=== PATIENT | female | born 1995 | race African-American/Black ===

== ENCOUNTER 2019-06-04 11:01 | Emergency (ER) | payer MEDICAID ==
[~2019-06-04] VITALS: Ht 162.6 cm; Wt 42.5 kg
[2019-06-04] MEDS ORDERED: SODIUM CHLORIDE 0.9% 1,000 ML IV ONE (13:15)
[2019-06-04 13:21] LABS: BASOPHILS % 0.7 % (0.0-2.0); EOSINOPHILS % 1.9 % (0.0-5.0); HEMATOCRIT. 36.5 % (36.0-48.0); HEMOGLOBIN. 11.7 g/dL (12.0-16.0); LYMPHOCYTES % 22.6 % (20.0-50.0); MEAN CORPUSCULAR HEMOGLOBIN 23.8 pg (28.0-32.0); MEAN CORPUSCULAR VOLUME 74.5 fL (81.0-99.0); MEAN PLATELET VOLUME 6.9 fl (7.4-10.4); NEUTROPHILS % 69.8 % (40.0-76.0); PLATELET 258 x1000/uL (130-400); RED CELL DISTRIBUTION WIDTH 13.5 % (11.6-14.6)
[2019-06-04 13:24] LABS: CLARITY URINE CLOUDY (CLEAR); COLOR URINE YELLOW (YELLOW); KETONES URINE 4+ (NEGATIVE); LEUKOCYTE ESTERASE URINE TRACE (NEGATIVE); NITRITE URINE NEGATIVE (NEGATIVE); OCCULT BLOOD URINE NEGATIVE (NEGATIVE); PH URINE 6.5 (4.5-8.0); PROTEIN URINE TRACE (NEGATIVE); SPECIFIC GRAVITY URINE 1.025 (1.005-1.030)
[2019-06-04 13:36] LABS: CHLORIDE 106 mEq/L (98-107)
[2019-06-04 13:47] LABS: METHADONE URINE SCREEN NEGATIVE (NEGATIVE); OPIATES URINE SCREEN NEGATIVE (NEGATIVE); PHENCYCLIDINE URINE SCREEN NEGATIVE (NEGATIVE)
[2019-06-04 13:48] LABS: *AMPHETAMINES SCREEN URINE NEGATIVE (NEGATIVE); *BARBITURATES SCREEN URINE NEGATIVE (NEGATIVE); *BENZODIAZEPINES SCREEN URINE NEGATIVE (NEGATIVE)
[2019-06-04 13:52] LABS: *COCAINE SCREEN URINE PRESUMTIVE POSITIVE (NEGATIVE); CANNABINOID URINE SCREEN PRESUMTIVE POSITIVE (NEGATIVE)
[2019-06-04] MEDS ORDERED: NITROFURANTOIN 100MG M/M CAPSULE PO ONE (16:45)
[2019-06-04 16:51] VITALS: BP 131/71
== END 2019-06-04 16:52 | disposition home or self-care (01) ==
LOC: ER 11:01
DX: N39.0 Urinary tract infection, site not specified (principal); F12.19 Cannabis abuse with unspecified cannabis-induced disorder; F14.10 Cocaine abuse, uncomplicated; R42 Dizziness and giddiness; E86.0 Dehydration; E86.1 Hypovolemia; N17.0 Acute kidney failure with tubular necrosis; R79.89 Other specified abnormal findings of blood chemistry; R80.9 Proteinuria, unspecified; R82.4 Acetonuria
CPT/HCPCS: 36415; 71045; 80053; 80305; 81003; 81025; 85025; 93005; 96360; 96361; 99284; J7030; Z7610

== ENCOUNTER 2020-09-25 13:00 | Emergency (ER) | payer MEDICAID ==
[~2020-09-25] VITALS: Ht 162.6 cm; Wt 48.0 kg
[2020-09-25 14:48] LABS: BASOPHILS % 0.7 % (0.0-2.0); EOSINOPHILS % 2.1 % (0.0-5.0); HEMATOCRIT. 33.8 % (36.0-48.0); HEMOGLOBIN. 10.8 g/dL (12.0-16.0); LYMPHOCYTES % 26.4 % (20.0-50.0); MEAN CORPUSCULAR HEMOGLOBIN 24.4 pg (28.0-32.0); MEAN CORPUSCULAR VOLUME 76.1 fL (81.0-99.0); MEAN PLATELET VOLUME 8.4 fl (7.4-10.4); MONOCYTES % 6.8 % (2.0-8.0); PLATELET 310 x1000/uL (130-400); RED BLOOD CELL COUNT 4.44 mill/uL (4.2-5.4); RED CELL DISTRIBUTION WIDTH 14.4 % (11.6-14.6)
[2020-09-25 14:56] LABS: CHLORIDE 107 mEq/L (98-107)
[2020-09-25 15:09] VITALS: BP 111/68
[2020-09-25 15:09] LABS: B-HCG QUANTITATIVE 287 mIU/mL (<3)
== END 2020-09-25 15:49 | disposition home or self-care (01) ==
LOC: ER 13:27
DX: O03.9 Complete or unspecified spontaneous abortion without complication (principal); I49.9 Cardiac arrhythmia, unspecified; Z3A.01 Less than 8 weeks gestation of pregnancy
CPT/HCPCS: 36415; 76830; 76856; 80048; 84702; 85025; 86850; 86900; 93005; 99285